=== PATIENT | male | born 2000 | race Caucasian/White ===

== ENCOUNTER 2023-07-08 22:01 | Emergency (ER) | payer BC ==
[~2023-07-08] VITALS: Ht 180.3 cm; Wt 83.9 kg
[2023-07-08 22:13] VITALS: BP 119/80; PULSE 116; RESP 20; TEMP 101.1; O2SAT 100
[2023-07-08] MEDS: ACETAMINOPHEN EXTRA STRENGTH 500 MG TAB PO ONE (22:42)
[2023-07-09 00:18] LABS: BASOPHILS % (AUTO) 0.1 % (0.0-2.0); HEMATOCRIT 44.9 % (36-52); HEMOGLOBIN 15.7 g/dL (12.0-18.0); LYMPHOCYTES # (AUTO) 0.4 K/uL (2.0-11.5); LYMPHOCYTES % (AUTO) 5.5 % (20.5-51.1); MEAN CORPUSCULAR HEMOGLOBIN 31 pg (27-31); MEAN CORPUSCULAR HGB CONC 35 g/dL (33-37); MEAN CORPUSCULAR VOLUME 89.4 fL (80-94); MONOCYTES # (AUTO) 0.7 K/uL (0.8-1.0); MONOCYTES % (AUTO) 8.5 % (1.7-9.3); NEUTROPHILS # (AUTO) 6.8 K/uL (1.8-7.7); NEUTROPHILS % (AUTO) 85.9 % (42.2-75.2); PLATELET COUNT (AUTO) 161 K/uL (140-450); RED BLOOD CELL COUNT(AUTO) 5.03 MIL/uL (4.20-6.10); RED CELL DISTRIBUTION WIDTH 12.4 % (11.6-13.7); WHITE BLOOD COUNT (AUTO) 7.9 K/uL (4.8-10.8)
[2023-07-09] MEDS: NACL 0.9% 1,000 ML IV ONE (00:27)
[2023-07-09 00:33] LABS: CALCIUM 8.8 mg/dL (8.5-10.1); CARBON DIOXIDE 28.1 mmol/L (21-32); CREATININE 1.3 mg/dL (0.6-1.3); POTASSIUM 3.1 mmol/L (3.5-5.1)
[2023-07-09 00:39] LABS: ALBUMIN 3.9 g/dL (3.4-5.0); BILIRUBIN,DIRECT 0.1 mg/dL (0.0-0.3); TOTAL BILIRUBIN 0.5 mg/dL (0.0-1.0); TOTAL PROTEIN, SERUM 8.3 g/dL (6.4-8.2)
[2023-07-09 00:41] LABS: LACTIC ACID 0.8 mmol/L (0.4-2.0)
[2023-07-09 00:54] LABS: APPEARANCE,URINE CLEAR (CLEAR); BILIRUBIN,URINE 1+ (NEGATIVE); BLOOD, URINE NEGATIVE (NEGATIVE); COLOR,URINE YELLOW (YELLOW); LEUKOCYTE ESTERASE ,URINE NEGATIVE (NEGATIVE); NITRITE, URINE NEGATIVE (NEGATIVE); PROTEIN,URINE 1+ (NEGATIVE); UGLUCOSE NEGATIVE (NEGATIVE); UROBILINOGEN,URINE 0.2 EU/dL (0.2 - 1)
[2023-07-09 00:56] LABS: ICTOTEST POSITIVE (NEGATIVE)
[2023-07-09 01:30] LABS: FLU A ANTIGEN negative (NEGATIVE); FLU B ANTIGEN NEGATIVE (NEGATIVE)
[2023-07-09] MEDS: POTASSIUM CHLORIDE 10 MEQ TABER PO ONE (01:40)
[2023-07-09] MEDS ORDERED: NAPR-54 PO (02:20)
[2023-07-09 02:25] VITALS: BP 117/61; PULSE 120; RESP 20; TEMP 98; O2SAT 98
== END 2023-07-09 02:25 | disposition home or self-care (01) ==
LOC: MED 22:01
DX: B34.9 Viral infection, unspecified (principal); E87.6 Hypokalemia; Z20.822 Contact with and (suspected) exposure to COVID-19; Z79.1 Long term (current) use of non-steroidal anti-inflammatories (NSAID); Z91.010 Allergy to peanuts
CPT/HCPCS: 36415; 71045; 74176; 80048; 80076; 81003; 83605; 85025; 87040; 87086; 87426; 87804; 96360; 99284; J7030; Q0092